=== PATIENT | female | born 1950 | race Caucasian/White ===

== ENCOUNTER 2018-12-15 12:57 | Emergency (ER) | payer MEDICARE, OTHER ==
--- NOTE | 2018-12-15 14:10 | ED Physician Documentation ---
PD HPI NVD - Stated complaint Stated Complaint: MARRERO/DIARRHEA/VOMITING - Chief complaint Chief Complaint: General - History obtained from History obtained from: Patient - History of Present Illness Timing - onset: How many days ago (2 days - She started initially with nausea and multiple episodes of diarrhea which decreased to a couple of bouts daily last 2 days but associated with some nausea and today an episode of vomiting. She still feels somewhat nauseous. She has had a headache. She denies any upper respiratory symptoms. She called the consulting nurse and was told not to take any Tylenol or ibuprofen to come to the ER for evaluation for concern of dehydration.) Timing - duration: Days (2) Timing - details: Abrupt onset, Still present (less diarrhea and vomiting but still some and feeling nauseated and generally weak. Some headache. She called her PMD office and was told to come to ER for concern of dehydration. She was hoping for some antiemetic or such.) Associated symptoms: No: Fever, Near syncope / syncope Contributing factors: No: Sick contact Similar symptoms before: Has not had sx before Recently seen: Not recently seen Review of Systems Constitutional: reports: Myalgias, Fatigue. denies: Fever Nose: denies: Rhinorrhea / runny nose, Congestion Throat: denies: Sore throat Respiratory: denies: Cough GI: reports: Abdominal Pain (crampy intermittent), Nausea, Vomiting, Diarrhea. denies: Hematemesis, Bloody / black stool : denies: Dysuria, Frequency Skin: denies: Rash, Lesions Neurologic: reports: Generalized weakness, Headache. denies: Focal weakness, Numbness, Near syncope PD PAST MEDICAL HISTORY - Past Medical History Cardiovascular: None Respiratory: None GI: None - Present Medications Home Medications: Ambulatory Orders Medication Instructions Recorded Confirmed Diphenoxylate/Atropine [Lomotil] 1 each PO QID PRN #12 tablet 12/15/18 Ondansetron Odt [Zofran] 4 mg TL Q6H PRN #10 tablet 12/15/18 - Allergies Allergies/Adverse Reactions: Allergies Allergy/AdvReac Type Severity Reaction Status Date / Time No Known Drug Allergies Allergy Verified 12/15/18 13:11 PD ED PE NORMAL - Vitals Vital signs reviewed: Yes - General General: Alert and oriented X 3, No acute distress, Well developed/nourished - HEENT HEENT: Pharynx benign - Neck Neck: No adenopathy, No JVD - Cardiac Cardiac: RRR, No murmur - Respiratory Respiratory: Clear bilaterally - Abdomen Abdomen: Normal bowel sounds, Soft, Non tender, Non distended, No organomegaly Results - Vitals Vitals: Vital Signs - 24 hr 12/15/18 13:07 Temperature 37.1 C Heart Rate 81 Respiratory 18 Rate Blood Pressure 133/72 H O2 Saturation 97 Oxygen O2 Source Room air PD MEDICAL DECISION MAKING - ED course Complexity details: considered differential (sounds likely viral GE, without abd tenderness at this time, and symptoms are past peak of severity. She can use an tiemetic and antidiarrheal. She does not feel she needs IV fluids or meds, but just some meds. ), d/w patient Departure - Departure Disposition: 01 Home, Self Care Clinical Impression: Nausea vomiting and diarrhea Condition: Stable Record reviewed to determine appropriate education?: Yes Instructions: ED Gastroenteritis Vs Food Poison Follow-Up: KINZA LOMAX MD [Primary Care Provider] - Prescriptions: Diphenoxylate/Atropine [Lomotil] 1 each PO QID PRN #12 tablet PRN Reason: Diarrhea Ondansetron Odt [Zofran] 4 mg TL Q6H PRN #10 tablet PRN Reason: Nausea / Vomiting Comments: This sounds likely to be a viral stomach bug. Typically this will be to a 3-day illness. Use ondansetron if needed for nausea. Imodium or Lomotil for diarrhea. I think it would be fine for you to take Tylenol for headache and pains. I would avoid ibuprofen or naproxen as can irritate your stomach. Frequent fluids through the day today. Recheck if not improved over the next couple more days. Discharge Date/Time: 12/15/18 14:32
[2018-12-15] MEDS ORDERED: ACETAMINOPHEN 325 MG TABLET PO STA (14:18)
[2018-12-15 14:31] VITALS: BP 133/72
[2018-12-15] MEDS ORDERED: ACETAMINOPHEN 325 MG TABLET PO ONE (14:35)
== END 2018-12-15 14:32 | disposition home or self-care (01) ==
LOC: ED 12:57
DX: R11.2 Nausea with vomiting, unspecified (principal); R19.7 Diarrhea, unspecified
CPT/HCPCS: 99281; 99283; A9270

== ENCOUNTER 2019-06-20 03:46 | Emergency (ER) | payer MEDICARE ==
[2019-06-20 04:25] LABS: BASOPHILS % (AUTO) 0.3 %; EOSINOPHILS # (AUTO) 0.1 10^3/uL (0.0-0.7); EOSINOPHILS % (AUTO) 1.4 %; HGB - HEMOGLOBIN 14.1 g/dL (12.0-16.0); LYMPHOCYTES # (AUTO) 1.2 10^3/uL (1.5-3.5); LYMPHOCYTES % (AUTO) 17.6 %; MEAN CORPUSCULAR HEMOGLOBIN 31.4 pg (27.0-31.0); MEAN CORPUSCULAR HGB CONC 33.3 g/dL (32.0-36.0); MEAN CORPUSCULAR VOLUME 94.4 fL (81.0-99.0); MEAN PLATELET VOLUME 9.9 fL (7.9-10.8); MONOCYTES # (AUTO) 0.4 10^3/uL (0.0-1.0); MONOCYTES % (AUTO) 5.3 %; NEUTROPHILS # (AUTO) 4.9 10^3/uL (1.5-6.6); NEUTROPHILS % (AUTO) 75.1 %; PLT - PLATELET COUNT 197 10^3/uL (130-450); RED BLOOD COUNT 4.49 10^6/uL (4.20-5.40); RED CELL DISTRIBUTION WIDTH 11.9 % (12.0-15.0); WHITE BLOOD COUNT 6.6 x10^3/uL (4.8-10.8)
[2019-06-20 04:39] LABS: ALBUMIN 4.9 g/dL (3.2-5.5); ALBUMIN/GLOBULIN RATIO 2.2 (1.0-2.2); BILIRUBIN,TOTAL 0.8 mg/dL (0.2-1.0); CALCIUM 9.8 mg/dL (8.5-10.3); CREATININE 0.9 mg/dL (0.4-1.0); TOTAL PROTEIN 7.1 g/dL (6.7-8.2)
--- NOTE | 2019-06-20 05:07 | XRAY Report ---
Reason: chest pain Procedure Date: 06/20/2019 Accession Number: [id number] / [id number] Procedure: XR - Chest 1 View X-Ray CPT Code: 50714 FULL RESULT: EXAM: CHEST RADIOGRAPHY EXAM DATE: 06/20/2019 04:30 AM. CLINICAL HISTORY: Chest pain. COMPARISON: None. TECHNIQUE: 1 view. FINDINGS: Lungs/Pleura: No focal opacities evident. No pleural effusion. No pneumothorax. Mediastinum: Within exam limitations, the cardiomediastinal contour is normal. Other: Surgical ro are seen in the right axilla and overlying the right breast. Status post right mastectomy. IMPRESSION: No acute infiltrates. RADIA
--- NOTE | 2019-06-20 05:35 | ED Physician Documentation ---
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 she found that she was too ataxic to ambulate to BR and thus sat back in bed. also had sensation of rapid palpitations. symptoms have resolved by the time of this evaluation Review of Systems Constitutional: reports: Reviewed and negative Cardiac: reports: Palpitations. denies: Chest pain / pressure, Pedal edema, Calf pain Respiratory: reports: Reviewed and negative Neurologic: reports: Generalized weakness. denies: Focal weakness, Numbness, Headache, LOC PD PAST MEDICAL HISTORY - Past Medical History Past Medical History: Yes Cardiovascular: None Respiratory: None Neuro: None Endocrine/Autoimmune: Other GI: GERD LEACHER: None : None HEENT: None Psych: None Musculoskeletal: Osteoporosis Derm: None Other Past Medical History: parathyroid disorder - Past Surgical History Past Surgical History: Yes /LEACHER: Other HEENT: Cataracts, Tonsil/Adenoidectomy Derm: Skin cancer surgery - Present Medications Home Medications: Ambulatory Orders Medication Instructions Recorded Confirmed Diphenoxylate/Atropine [Lomotil] 1 each PO QID PRN #12 tablet 12/15/18 Ondansetron Odt [Zofran] 4 mg TL Q6H PRN #10 tablet 12/15/18 Meclizine HCl 25 mg PO TID PRN #20 tablet 06/20/19 - Allergies Allergies/Adverse Reactions: Allergies Allergy/AdvReac Type Severity Reaction Status Date / Time No Known Drug Allergies Allergy Verified 12/15/18 13:11 - Social History Does the pt smoke?: No Smoking Status: Never smoker Does the pt drink ETOH?: Yes ETOH Use: Wine, Beer Does the pt have substance abuse?: No - Immunizations Immunizations are current?: Yes - POLST Patient has POLST: No PD ED PE NORMAL - Vitals Vital signs reviewed: Yes - General General: Alert and oriented X 3, No acute distress, Well developed/nourished - HEENT HEENT: PERRL, EOMI, Moist mucous membranes - Neck Neck: Supple, no meningeal sign - Cardiac Cardiac: RRR, No murmur, No gallop, No rub - Respiratory Respiratory: No respiratory distress, Clear bilaterally - Abdomen Abdomen: Soft, Non tender - Derm Derm: Normal color, Warm and dry - Extremities Extremities: No edema - Neuro Neuro: Alert and oriented 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, 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, No motor deficit, No sensory deficit, Normal speech Eye Opening: Spontaneous Motor: Obeys Commands Verbal: Oriented GCS Score: 15 Results - Vitals Vitals: Oxygen O2 Source Room air - EKG (time done) No standard instances Rate: Rate (enter#) (75) Rhythm: NSR [place]: Normal Intervals: Normal [place] QRS: Normal Ischemia: Normal ST segments - Labs Labs: Laboratory Tests 06/20/19 06/20/19 04:21 04:21 WBC 6.6 RBC 4.49 Hgb 14.1 Hct 42.4 MCV 94.4 MCH 31.4 H MCHC 33.3 RDW 11.9 L Plt Count 197 MPV 9.9 Neut # (Auto) 4.9 Lymph # (Auto) 1.2 L [place] # (Auto) 0.4 Eos # (Auto) 0.1 Baso # (Auto) 0.0 Absolute Nucleated RBC 0.00 Nucleated RBC % 0.0 Sodium 143 Potassium 4.2 Chloride 105 Carbon Dioxide 27 Anion Gap 11.0 BUN 15 Creatinine 0.9 Estimated GFR (MDRD) 62 L Glucose 126 H Calcium 9.8 Total Bilirubin 0.8 AST 19 ALT 15 Alkaline Phosphatase 55 Total Protein 7.1 Albumin 4.9 Globulin 2.2 Albumin/Globulin Ratio 2.2 Lipase 41 - Rads (name of study) chest xray Radiology: Prelim report reviewed, See rad report PD MEDICAL DECISION MAKING - ED course Complexity details: reviewed results, re-evaluated patient, considered differential, d/w patient Departure - Departure Disposition: 01 Home, Self Care Clinical Impression: Vertigo, Palpitations Condition: Good Instructions: Meclizine, ED Palpitations, ED Vertigo Unspecified Prescriptions: Meclizine HCl 25 mg PO TID PRN #20 tablet PRN Reason: Vertigo Discharge Date/Time: 06/20/19 06:07
[2019-06-20 06:06] VITALS: BP 138/78
== END 2019-06-20 06:07 | disposition home or self-care (01) ==
LOC: ED 03:46
DX: R42 Dizziness and giddiness (principal); R00.2 Palpitations
CPT/HCPCS: 36415; 71045; 80053; 83690; 85025; 93005; 99283; 99284

== ENCOUNTER 2024-04-21 15:19 | Outpatient (CLI) | payer MEDICARE | END 2024-04-21 23:59 | disposition critical access hospital (66) | LOC: EMS 15:19 | DX: R55 Syncope and collapse (principal) | CPT/HCPCS: A0425; A0429 ==

== ENCOUNTER 2024-04-21 15:58 | Emergency (ER) | payer MEDICARE ==
--- NOTE | 2024-04-21 16:09 | ED Physician Documentation ---
History of Present Illness - Stated complaint Stated Complaint: DIZZY - Additonal information Additional information: 73-year-old female with history of high cholesterol, syncopal episodes in the past, transient global amnesia presents emergency department via EMS for episode of dizziness that lasted for about 1 minute. Patient says that she was sitting at rest on the phone with her friend not having a stressful conversation and started feeling a very odd sensation to the back of her neck radiating to her head with blurred vision. She says that it did not feel like vasovagal she had dizziness and says that she just felt very off. 911 was called at this point time symptoms had fully resolved she has no focal neurological deficits no recent medication changes. 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 HEENT: Cataracts, Tonsil/Adenoidectomy Derm: Skin cancer surgery - Present Medications Home Medications: Ambulatory Orders Medication Instructions Recorded Confirmed Diphenoxylate/Atropine [Lomotil] 1 each PO QID PRN #12 tablet 12/15/18 Ondansetron Odt [Zofran] 4 mg TL Q6H PRN #10 tablet 12/15/18 Meclizine HCl 25 mg PO TID PRN #20 tablet 06/20/19 - Allergies Allergies/Adverse Reactions: Allergies Allergy/AdvReac Type Severity Reaction Status Date / Time No Known Drug Allergies Allergy Verified 04/21/24 16:02 - Social History Does the pt smoke?: No Smoking Status: Never smoker Does the pt drink ETOH?: Yes Does the pt have substance abuse?: No - Immunizations Immunizations are current?: Yes - POLST Patient has POLST: No PD ED PE NORMAL - Vitals Vital signs reviewed: Yes - General General: Alert and oriented X 3, No acute distress, Well developed/nourished - HEENT HEENT: Atraumatic, PERRL, EOMI - Neck Neck: Supple, no meningeal sign, No bony TTP - Cardiac Cardiac: RRR - Respiratory Respiratory: No respiratory distress - Abdomen Abdomen: Normal bowel sounds - Back Back: No CVA TTP - Derm Derm: Normal color, Warm and dry, No rash - Extremities Extremities: No deformity, No tenderness to palpate, Normal ROM s pain, No edema, No calf tenderness / cord - Neuro 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 Relevant findings are: Rate: Rate (enter#) (77) Rhythm: NSR [place]: Normal Intervals: Normal [place], Other QRS: Normal Ischemia: Normal ST segments Computer interpretation: Agree with computer - Labs Labs: Laboratory Tests 04/21/24 04/21/24 17:01 17:01 WBC 9.8 RBC 4.36 Hgb 14.1 Hct 41.9 MCV 96.1 MCH 32.3 H MCHC 33.7 RDW 11.9 L Plt Count 192 MPV 9.9 Neut # (Auto) 7.9 H Lymph # (Auto) 1.3 L [place] # (Auto) 0.4 Eos # (Auto) 0.1 Baso # (Auto) 0.0 Absolute Nucleated RBC 0.00 Nucleated RBC % 0.0 Sodium 138 Potassium 3.7 Chloride 102 Carbon Dioxide 26 Anion Gap 10.0 BUN 18 Creatinine 0.8 Estimated GFR (MDRD) 70 L Glucose 125 H Calcium 9.4 Magnesium 1.8 Total Bilirubin 0.6 AST 21 ALT 22 Alkaline Phosphatase 62 Total Protein 7.1 Albumin 4.6 Globulin 2.5 Albumin/Globulin Ratio 1.8 Lipase 34 TSH 2.62 - Rads (name of study) Head CT without Relevant Findings:: Final report received, EMP independent interpretation of test, Other (No acute intracranial pathology or abnormalities) PD Medical Decision Making - ED course ED course: 73-year-old female presents emergency department for brief episode of dizziness that lasted about 1 minute and fully resolved. Since patient has been here she has had no recurrent episodes of dizziness and normal vision no chest pain no shortness of breath. EKG was complete no acute abnormalities are visualized. Labs also complete and that no leukocytosis no electrolyte abnormalities normal kidney function. Head CT was complete also for further evaluation and again no acute intracranial abnormalities or findings are visualized. At this point time I do not believe any further emergent workup is needed. Patient has contact with primary care provider and she is told to follow-up with her primary care provider outpatient for further evaluation. Strict ED return precautions given patient is safe for discharge at this time she is able to ambulate without any difficulty she has no focal neurological deficits and again has not had any of these recurrent episodes and she has been here. Departure - Departure Disposition: Home, Self Care Clinical Impression: Dizziness Instructions: ED Dizziness [facility] Comments: Thank you for trusting us with your care. We have completed labs as well as an EKG and we are not seeing any acute abnormal findings we also completed a head CT and again we are not seeing any acute abnormal findings. Please help with your primary care provider about today's ER visit for further workup and evaluation if this episode happens again or if you start developing chest pain shortness of breath or other vision changes or any other emergent concerning symptoms please come back to the emergency department for reevaluation. Forms: PCP List Discharge Date/Time: 04/21/24 18:56
[2024-04-21 17:05] LABS: BASOPHILS % (AUTO) 0.3 %; EOSINOPHILS # (AUTO) 0.1 10^3/uL (0.0-0.7); EOSINOPHILS % (AUTO) 1.2 %; HCT - HEMATOCRIT 41.9 % (37.0-47.0); HGB - HEMOGLOBIN 14.1 g/dL (12.0-16.0); LYMPHOCYTES # (AUTO) 1.3 10^3/uL (1.5-3.5); LYMPHOCYTES % (AUTO) 13.6 %; MEAN CORPUSCULAR HEMOGLOBIN 32.3 pg (27.0-31.0); MEAN CORPUSCULAR HGB CONC 33.7 g/dL (32.0-36.0); MEAN CORPUSCULAR VOLUME 96.1 fL (81.0-99.0); MEAN PLATELET VOLUME 9.9 fL (7.9-10.8); MONOCYTES # (AUTO) 0.4 10^3/uL (0.0-1.0); MONOCYTES % (AUTO) 4.3 %; NEUTROPHILS # (AUTO) 7.9 10^3/uL (1.5-6.6); NEUTROPHILS % (AUTO) 80.4 %; PLT - PLATELET COUNT 192 10^3/uL (130-450); RED BLOOD COUNT 4.36 10^6/uL (4.20-5.40); RED CELL DISTRIBUTION WIDTH 11.9 % (12.0-15.0); WHITE BLOOD COUNT 9.8 x10^3/uL (4.8-10.8)
[2024-04-21 17:21] VITALS: O2SAT 99
[2024-04-21 17:26] LABS: ALBUMIN 4.6 g/dL (3.2-5.5); ALBUMIN/GLOBULIN RATIO 1.8 (1.0-2.2); BILIRUBIN,TOTAL 0.6 mg/dL (0.2-1.0); CALCIUM 9.4 mg/dL (8.5-10.3); CREATININE 0.8 mg/dL (0.6-1.3); MAGNESIUM 1.8 mg/dL (1.7-2.3); POTASSIUM 3.7 mmol/L (3.5-4.5); TOTAL PROTEIN 7.1 g/dL (6.4-8.9)
[2024-04-21 17:35] LABS: THYROID STIMULATING HORMONE 2.62 uIU/mL (0.34-5.60)
--- NOTE | 2024-04-21 18:24 | CT Report ---
PROCEDURE: Head WO INDICATIONS: dizziness TECHNIQUE: Noncontrast 4.5 mm thick angled axial sections acquired from the foramen magnum to the vertex. For r adiation dose reduction, the following was used: automated exposure control, adjustment of mA and/or kV according to patient size. COMPARISON: None. FINDINGS: Image quality: Excellent. CSF spaces: Basal cisterns are patent. No extra-axial fluid collections. Ventricles are normal in size and shape. Brain: No midline shift. No intracranial masses or hemorrhage. [place]-white matter interface is norm al. Skull and face: Calvarium and visualized facial bones are intact, without suspicious lesions. Sinuses: Visualized sinuses and mastoids are clear. IMPRESSION: No acute intracranial pathology. Reviewed by: Elías Devries MD on 04/21/2024 6:23 PM PDT Approved by: Elías Devries MD on 04/21/2024 6:23 PM PDT Station ID: [id number]
[2024-04-21 18:56] VITALS: BP 141/71
== END 2024-04-21 18:56 | disposition home or self-care (01) ==
LOC: EDUNIT# → ED 15:58
DX: R42 Dizziness and giddiness (principal); E78.00 Pure hypercholesterolemia, unspecified; G45.4 Transient global amnesia
CPT/HCPCS: 36415; 80053; 83690; 83735; 84443; 85025; 93005; 99283; 99284